=== PATIENT | male | born 1950 | race Caucasian/White ===

== ENCOUNTER → 2016-08-12 | Outpatient (CLI) | payer MEDICARE ==
[~2016-08-12] MED LIST: ALPR.25 PO; ALPR0.25 PO; AMLO5TAB2 PO; ATEN-102 PO; ATOR20TA15 PO; CIAL5TAB PO; ENBR50IN2 SQ; ENBR50IN3 SC; GENE10SO PO; IPRASOL INH; LACT10SO47 PO; LEVA500T PO; LEVEMIR SQ; LEVO750T33 PO; LOMO PO; NEBUKIT5; NORV5TAB PO; NOVORP2 SQ; OMEP20TA PO; OMEP20TA39 PO; PRED10 PO; PROBCAP30 PO; RIFA550 PO; SALM50I INH; TELM1TAB56 PO; TRAD5TAB PO; TRAM50TA PO; TRAZ150T75 PO; TRAZ50TA4 PO; ULTR50TA PO; UMEC1AER INH; VICT18IN SQ; XIFA550T4 PO; [UNRECOGNIZED DRUG - CODE] PO; [UNRECOGNIZED DRUG - CODE] TOP; [UNRECOGNIZED DRUG - CODE] TOPICAL
[2016-08-12 12:23] LABS: AUTOMATED NEUTROPHIL # 2.5 TH/MM3 (1.8-7.7); BASOPHIL % 0.8 % (0.0-2.0); EOSINOPHIL # 0.1 TH/MM3 (0-0.4); EOSINOPHIL % 2.4 % (0.0-4.0); HEMATOCRIT 34.3 % (39.0-51.0); LYMPH % 33.8 % (9.0-44.0); LYMPHOCYTE # 1.6 TH/MM3 (1.0-4.8); MEAN CELL VOLUME 94.4 FL (80.0-100.0); MEAN CORPUSCULAR HEMOGLOBIN 30.9 PG (27.0-34.0); MEAN CORPUSCULAR HGB CONC 32.7 % (32.0-36.0); MONO % 10.9 % (0.0-8.0); NEUT % 52.1 % (16.0-70.0); PLATELET COUNT 204 TH/MM3 (150-450); RED BLOOD COUNT 3.64 MIL/MM3 (4.50-5.90); RED CELL DISTRIBUTION WIDTH 15.9 % (11.6-17.2); WHITE BLOOD COUNT 4.8 TH/MM3 (4.0-11.0)
[2016-08-12 12:29] LABS: HEMO FLAGS AUTO DIFF
[2016-08-12 12:49] LABS: ALKALINE PHOSPHATASE 138 U/L (45-117); ALT (GPT) 29 U/L (12-78); ANION GAP 8 MEQ/L (5-15); AST (GOT) 38 U/L (15-37); BICARBONATE 21.7 MEQ/L (21.0-32.0); BLOOD UREA NITROGEN 14 MG/DL (7-18); CHLORIDE 107 MEQ/L (98-107); GLOMERULAR FILTRATION RATE 86 ML/MIN (>89); GLUCOSE,FASTING 184 MG/DL (74-99); POTASSIUM 3.9 MEQ/L (3.5-5.1); SODIUM (NA) 137 MEQ/L (136-145); TOTAL BILIRUBIN ADULT 0.7 MG/DL (0.2-1.0)
[2016-08-12 13:07] LABS: BANDS 8 % (0-6); EOSINOPHILS 4 % (0-4); METAMYELOCYTES 1 % (0-1); NEUTROPHIL # MANUAL DIFF 2.2 TH/MM3 (1.8-7.7); POLYS (SEG NEUTROPHILS) 37 % (16-70); WBC DIFF SAMPLE 100
[2016-08-12 13:09] LABS: OVALOCYTES 1+ (NORMAL); PLATELET ESTIMATE SMEAR NORMAL (NORMAL); PLATELET MORPHOLOGY NORMAL (NORMAL)
[2016-08-12 13:10] LABS: SCAN/DIFF FINAL DIFF MANUAL
== END ==
LOC: ELAB 11:18
PROVIDERS: ATTEND Internal Medicine
DX: N18.9 Chronic kidney disease, unspecified (principal); J18.9 Pneumonia, unspecified organism
CPT/HCPCS: 36415; 80053; 85007; 85027; 86140; 87070; 87205

== ENCOUNTER 2016-08-14 11:28 | Inpatient (IN) | payer MEDICARE ==
[~2016-08-14] VITALS: Ht 185.4 cm; Wt 101.9 kg
[~2016-08-14 11:28] MED LIST changes: -ALPR0.25 PO; -AMLO5TAB2 PO; -ATOR20TA15 PO; -ENBR50IN2 SQ; -IPRASOL INH; -LACT10SO47 PO; -LEVA500T PO; -LEVEMIR SQ; -LEVO750T33 PO; -NEBUKIT5; -OMEP20TA PO; -PRED10 PO; -PROBCAP30 PO; -TRAM50TA PO; -TRAZ150T75 PO; -UMEC1AER INH; -VICT18IN SQ; -XIFA550T4 PO; -[UNRECOGNIZED DRUG - CODE] PO; -[UNRECOGNIZED DRUG - CODE] TOPICAL
[2016-08-14 11:31] VITALS: BP 163/70; PULSE 78; RESP 24; TEMP 97.5; O2SAT 92
[2016-08-14 12:37] VITALS: RESP 20; O2SAT 100
[2016-08-14] MEDS ORDERED: ENBR50IN2 SQ (13:22)
[2016-08-14] MEDS ORDERED: ALPR0.25 PO (13:22)
[2016-08-14] MEDS ORDERED: TRAM50TA PO (13:31)
[2016-08-14] MEDS ORDERED: VICT18IN SQ (13:31)
[2016-08-14] MEDS ORDERED: [UNRECOGNIZED DRUG - CODE] TOPICAL (13:31)
[2016-08-14] MEDS ORDERED: UMEC1AER INH (13:31)
[2016-08-14] MEDS ORDERED: AMLO5TAB2 PO (13:31)
[2016-08-14] MEDS ORDERED: XIFA550T4 PO (13:31)
[2016-08-14] MEDS ORDERED: TRAZ150T75 PO (13:31)
[2016-08-14] MEDS ORDERED: TELM1TAB56 PO (13:31)
[2016-08-14] MEDS ORDERED: LACT10SO47 PO (13:31)
[2016-08-14] MEDS ORDERED: CIAL5TAB PO (13:31)
[2016-08-14] MEDS ORDERED: LEVA500T PO (13:31)
[2016-08-14] MEDS ORDERED: [UNRECOGNIZED DRUG - CODE] PO (13:31)
[2016-08-14] MEDS ORDERED: ATOR20TA15 PO (13:31)
[2016-08-14] MEDS ORDERED: OMEP20TA PO (13:31)
[2016-08-14] MEDS ORDERED: PRED10 PO (13:38)
[2016-08-14] MEDS ORDERED: PROBCAP30 PO (13:41)
--- NOTE | 2016-08-14 14:12 | PD ---
HPI Chief Complaint: Respiratory Symptoms Time Seen by Provider: 14:07 Travel History International Travel<30 days: No Contact w/Intl Traveler<30days: No Traveled to known affect area: No History of Present Illness HPI 66-year-old male that presents to the ED for evaluation of abnormal results. Per patient about 2 weeks ago he came back from a cruise in the [facility]. Per patient he started feeling somewhat weak and felt like he was having a call versus just a hangover from "too much fun on the cruise". Per patient this was not the case and she symptoms continued to get worse. Per patient she was at [place] at the time and he was admitted to the [facility] in that area. Patient apparently was in the hospital for almost a week and had a full workup by ID as well as pulmonology and found pneumonia and was put on Levaquin. They couldn't really find a source of the pneumonia and/or concerning for other organisms other than bacteria secondary to patient taking some immunosuppressants for his psoriasis. Patient was started on prednisone as well which has put his blood sugars out of control. Per patient she came back to [place] after being discharged and he was seen by his boarding house manager Dr. Ogden about 2 days ago. Patient had a CAT scan during that time and the CT showed what appears multiple old alert pneumonia and was told to come here today while patient was being seen by his procurement inspector for evaluation of his high sugars secondary to the prednisone. Patient was told that he needed to be admitted. Per patient his symptoms are cough and weakness. He does have a history of mild COPD. He has a remote history of smoking. He has a history of hypertension and diabetes. 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 [facility] Past Medical History Cancer: Yes (SKIN) Cardiovascular Problems: Yes High Cholesterol: Yes Diabetes: Yes Patient Takes Glucophage: No Diminished Hearing: Yes (left decreased) Endocrine: No Gastrointestinal Disorders: Yes (ULCER 30 YEARS AGO, CHRONIC DIARRHEA, GERD) Genitourinary: Yes (ENLARGED PROSTATE--BNO) Hepatitis: No Hiatal Hernia: No Hypertension: Yes Immune Disorder: Yes (PSORIASIS) Musculoskeletal: Yes (R HIP REPLACEMENT 2011, CERVICAL SPINE SURGERY, CERVICAL DISKECTOMY) Neurologic: Yes (POLYMYLITIS) Psychiatric: No Reproductive: No Respiratory: Yes Thyroid Disease: No Past Surgical History Abdominal Surgery: Yes (R INGUINAL HERNIA REPAIR) AICD: No Appendectomy: Yes Body Medical Devices: RIGHT HIP Genitourinary Surgery: Yes (RENAL ARTERY BYPASS USING R SAPHENOUS VEIN 1967) Joint Replacement: Yes (R HIP REPLACEMENT) Neurologic Surgery: Yes Oral Surgery: Yes (T & A) Pacemaker: No Tonsillectomy: Yes (AND ADENOIDS) Other Surgery: Yes Social History Alcohol Use: Yes (OCCASIONAL) Tobacco Use: Yes (CIGAR 3 PER WEEK) Substance Use: No Allergies-Medications (Allergen,Severity, Reaction): Coded Allergies: Sulfa (Verified Allergy, Severe, Rash, 08/14/16) Reported Meds & Prescriptions Reported Meds & Active Scripts Active Reported Florajen3 (Probiotic Product) 1 Cap Cap 1 Cap PO HS Prednisone 10 Mg Tab 30 Mg PO DAILY FOR 5 DAYS Levaquin (Levofloxacin) 500 Mg Tab 500 Mg PO DAILY Atorvastatin (Atorvastatin Calcium) 20 Mg Tab 20 Mg PO DAILY Glyset (Miglitol) 50 Mg Tab 50 Mg PO TIDAC Victoza Inj (Liraglutide Inj) 18 Mg/3 Ml Pen 1.8 Mg SQ HS Anoro Ellipta Inh (Umeclidinium/Vilanterol) 62.5-25 Mcg/Act Aero 1 Puff INH DAILY Trazodone (Trazodone HCl) 150 Mg Tab 150 Mg PO HS Tramadol (Tramadol HCl) 50 Mg Tab 50 Mg PO Q4H PRN First-Testosterone Topical (Testosterone Propionate) 2 % Cream 100 Mg TOPICAL DAILY Micardis (Telmisartan) 80 Mg Tab 80 Mg PO DAILY Cialis (Tadalafil) 5 Mg Tab 5 Mg PO DAILY Do not exceed 1 dose/day. Xifaxan (Rifaximin) 550 Mg Tab 550 Mg PO BID Omeprazole 20 Mg Tab 20 Mg PO HS Amlodipine (Amlodipine Besylate) 5 Mg Tab 5 Mg PO DAILY Enulose Liq (Lactulose (Encephalopathy) Liq) 10 Gm/15 Ml Soln 30 Ml PO HS Enbrel PF Inj (Etanercept) 50 mg/ml Syr 50 Mg SQ Q7D ON SUNDAYS Alprazolam 0.25 Mg Tab 0.25 Mg PO HS PRN Review of Systems General / Constitutional: Positive: Fever, Chills, No: Weight Gain, Weight Loss, Other Eyes: No: Diploplia, Blurred Vision, Photophobia, Drainage, Redness, Foreign Body Sensation, Pain, Tearing, Blind Spots, Visual changes, Blindness, Other HENT: No: Headaches, Vertigo, Lightheadedness, Sore Throat, Rhinitis, Rhinorrhea, Congestion, Nosebleed, Neck Stiffness, Neck Pain, Masses, Gingival Bleeding, Dental Difficulties, Ear Discharge, Earache, Other Cardiovascular: No: Chest Pain or Discomfort, Palpitations, Irregular Rhythm, Tachycardia, Diaphoresis, Syncope, Dyspnea on exertion, Varicosities, Edema, Cyanosis, Varicosities, Phlebitis, Claudication, Other Respiratory: Positive: Cough, Shortness of Breath, No: Wheezing, Sneezing, Orthopnea, Hemoptysis, Stridor, Night Sweats, Pleuritic Pain, Other Gastrointestinal: No: Nausea, Vomiting, Diarrhea, Abdominal Pain, Hematemesis, Hematochezia, Constipation, Changes in Bowel Habits, Indigestion, Dysphagia, Loss of Appetite, Other Genitourinary: No: Urgency, Frequency, Dysuria, Nocturia, Hematuria, Decreased Urinary Output, Oliguria, Hesitancy, Dribbling, Incontinence, Pelvic Pain, Flank Pain, Dyspareunia, Discharge, Dysmenorrhea, Menorrhagia, Metorrhagia, Vaginal Bleeding, Other Musculoskeletal: No: Myalgias, Arthralgias, Limited ROM, Weakness, Cramping, Edema, Pain, Atrophy, Other Skin: No Rash, No Itching, No Dryness, No Lumps, No Hives, No Change in Pigmentation, No Change in nails, No Alopecia, No Lesions, No Breast Lumps, No Breast Tenderness, No Breast Swelling, No Other Neurologic: No: Weakness, Dizziness, Syncope, Focal Abnormalities, Coordination Problem, Tremor, Ataxia, Headache, Change in Mentation, Slurred Speech, Paresthesia, Incontinence, Seizures, Sensory Disturbance, Other Psychiatric: No: Anxiety, Depression, Suicidal Ideations, Disorder of Thought, Mood Disorder, Substance Abuse, Homicidal Ideation, Other Endocrine: No: Heat Intolerance, Cold Intolerance, Polyuria, Polydipsia, Other Hematologic/Lymphatic: No: Easy Bruising, Lymph Node Enlargement, Other Physical Exam Narrative GENERAL: Well-nourished, well-developed patient in no apparent distress. SKIN: Warm and dry. HEAD: Atraumatic. Normocephalic. EYES: Pupils equal and round reactive to light and accommodation. No scleral icterus. No injection or drainage. ENT: No nasal bleeding or discharge. Mucous membranes pink and moist. TMs are clear with no sign of infection or perforation. No mastoid tenderness. Ear canals are intact bilaterally. No lymphadenopathy. Nostril mucosa is red and moist with clear mucus noted. No sinus tenderness to palpation noted. Tonsils are not enlarged or swollen. No ulvua Deviation. Tongue is midline. NECK: Trachea midline. No JVD. No meningeal signs noted CARDIOVASCULAR: Regular rate and rhythm. RESPIRATORY: No accessory muscle use. Clear to auscultation. Breath sounds equal bilaterally. GASTROINTESTINAL: Abdomen soft, non-tender, nondistended. Hepatic and splenic margins not palpable. MUSCULOSKELETAL: Extremities without clubbing, cyanosis, or edema. No obvious deformities. NEUROLOGICAL: Awake and alert. No obvious cranial nerve deficits. Motor grossly within normal limits. Five out of 5 muscle strength in the arms and legs. Normal speech. PSYCHIATRIC: Appropriate mood and affect; insight and judgment normal. Data Data Last Documented VS Vital Signs Date Time Temp Pulse Resp B/P Pulse Ox O2 Delivery O2 Flow Rate FiO2 08/14/16 12:37 77 20 100 2 08/14/16 12:37 Nasal Cannula 08/14/16 11:31 97.5 163/70 Orders Complete Blood Count With Diff (08/14/16 12:27) Basic Metabolic Panel (Bmp) (08/14/16 12:27) Blood Culture (08/14/16 12:27) Urinalysis - C+S If Indicated (08/14/16 12:27) Magnesium (Mg) (08/14/16 12:27) Iv Access Insert/Monitor (08/14/16 12:27) Ecg Monitoring (08/14/16 12:27) Oximetry (08/14/16 12:27) Consult Vascular Access Team (08/14/16 ) Vascular Poc Ultrasound (08/14/16 ) MDM Medical Decision Making Medical Screen Exam Complete: Yes Emergency Medical Condition: Yes Medical Record Reviewed: Yes Differential Diagnosis Pneumonia versus worsening pneumonia versus a typical pneumonia versus diabetes Narrative Course 66-year-old male that presents to the ED for evaluation of pneumonia. Patient was properly examined and was found to have signs and symptoms consistent what appears to be a typical pneumonia. Patient partially his immunosuppressants and he is taking antibiotics with improvement of his symptoms. Patient was found to have multiple considerations on his lung especially on the left and his been taking antibiotics with no resolution of his symptoms. Dr. Lopez was consulted who brought the patient here and after speaking with him he wants the patient to be admitted to help us, ID consult and he will evaluate here in the ED. Patient was told this and agrees with plan. Patient also tells me that his procurement inspector recommended a specific treatment for his sugars. Case was discussed with Dr. Pascal who agrees to admission. Patient was admitted to the hospital. Procedures EKG Prior to Arrival: No Diagnosis Primary Impression: Pneumonia Qualified Code: J18.9 - Pneumonia of both lower lobes due to infectious organism Admitting Information Admitting Physician Requests: Admit Ryland Ford Aug 14, 2016 14:12
[2016-08-14 14:43] LABS: AUTOMATED NEUTROPHIL # 3.7 TH/MM3 (1.8-7.7); BASOPHIL % 0.6 % (0.0-2.0); EOSINOPHIL % 0.3 % (0.0-4.0); HEMATOCRIT 34.4 % (39.0-51.0); HEMO FLAGS DIFF FINAL; LYMPH % 14.5 % (9.0-44.0); LYMPHOCYTE # 0.7 TH/MM3 (1.0-4.8); MEAN CELL VOLUME 92.5 FL (80.0-100.0); MEAN CORPUSCULAR HEMOGLOBIN 31.6 PG (27.0-34.0); MEAN CORPUSCULAR HGB CONC 34.2 % (32.0-36.0); MONO % 3.2 % (0.0-8.0); NEUT % 81.4 % (16.0-70.0); PLATELET COUNT 267 TH/MM3 (150-450); RED BLOOD COUNT 3.72 MIL/MM3 (4.50-5.90); RED CELL DISTRIBUTION WIDTH 15.9 % (11.6-17.2); WHITE BLOOD COUNT 4.6 TH/MM3 (4.0-11.0)
[2016-08-14] MEDS ORDERED: MAGNESIUM HYDROXIDE SUSP 30 ML CUP PO PRN (14:45)
[2016-08-14] MEDS ORDERED: NALOXONE HCL 0.4 MG/ML AMP IV PRN (14:45)
[2016-08-14] MEDS ORDERED: SODIUM CHLORIDE 0.9% FLUSH 5 ML FLUSH FLUSH PRN (14:45)
[2016-08-14] MEDS ORDERED: ONDANSETRON HCL 4 MG/2 ML VIAL IVP PRN (14:45)
[2016-08-14] MEDS ORDERED: ALPRAZolam 0.25 MG TAB PO PRN (14:45)
[2016-08-14] MEDS ORDERED: DEXTROSE 50% IN WATER 50 ML VIAL(D50) IV PUSH PRN (14:45)
[2016-08-14] MEDS ORDERED: RESP: ALBUTEROL 2.5 MG/3 ML NEB (PRN) NEB (14:45)
[2016-08-14] MEDS ORDERED: GLUCAGON 1 MG/ML VIAL OTHER PRN (14:45)
--- NOTE | 2016-08-14 14:50 | HHI.HP ---
[facility] Primary Care Physician nAgie Weldon M.D. Admission Diagnosis pneumonia, failed outpatient treatment. 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 He has been having shortness of breath and cough for the last 2 weeks. He was on a cruise to the [facility] a couple weeks ago. When he returned from the cruise, he went to [place]. While he was in [place], he developed fatigue and cough. He also developed hypotension and hypoxia. He was admitted to the intensive care unit. Workup by pulmonology and infectious disease showed pneumonia, but no causative bacteria. He is on day 13 of a 14 day course of Levaquin. When he returned home , he saw Dr. Ogden, pulmonology. CT of the chest was done. The patient states that he did not receive the results until this morning and was advised to come to the emergency department. His sustainable products marketing manager has requested admission to the hospital and infectious disease consultation. Review of Systems Constitutional: DENIES: Fever, Chills, Night Sweats Eyes: DENIES: Blurred vision, Vision loss Ears, nose, mouth, throat: DENIES: Hearing loss Respiratory: COMPLAINS OF: Cough, Shortness of breath, DENIES: Wheezing Cardiovascular: DENIES: Chest pain, Palpitations, Dyspnea on Exertion, Lower Extremity Edema Gastrointestinal: COMPLAINS OF: Diarrhea, DENIES: Abdominal pain, Constipation , Nausea, Vomiting Genitourinary: DENIES: Urinary frequency, Urinary incontinence, Urgency, Hematuria, Dysuria, Nocturia Musculoskeletal: DENIES: Joint pain, Muscle aches Integumentary: DENIES: Pruritus, Rash Hematologic/lymphatic: DENIES: Bruising Neurologic: DENIES: Headache Past Family Social History Past Medical History Psoriasis Diabetes mellitus Hypertension Hyperlipidemia Irritable bowel syndrome Past Surgical History Right hip replacement Spinal surgery Appendectomy Tonsillectomy/adenoidectomy Right inguinal hernia repair Renal artery bypass using right saphenous vein in 1966 Reported Medications Florajen3 (Probiotic Product) 1 Cap Cap 1 Cap PO HS Prednisone 10 Mg Tab 30 Mg PO DAILY FOR 5 DAYS Levaquin (Levofloxacin) 500 Mg Tab 500 Mg PO DAILY Atorvastatin (Atorvastatin Calcium) 20 Mg Tab 20 Mg PO DAILY Glyset (Miglitol) 50 Mg Tab 50 Mg PO TIDAC Victoza Inj (Liraglutide Inj) 18 Mg/3 Ml Pen 1.8 Mg SQ HS Anoro Ellipta Inh (Umeclidinium/Vilanterol) 62.5-25 Mcg/Act Aero 1 Puff INH DAILY Trazodone (Trazodone HCl) 150 Mg Tab 150 Mg PO HS Tramadol (Tramadol HCl) 50 Mg Tab 50 Mg PO Q4H PRN First-Testosterone Topical (Testosterone Propionate) 2 % Cream 100 Mg TOPICAL DAILY Micardis (Telmisartan) 80 Mg Tab 80 Mg PO DAILY Cialis (Tadalafil) 5 Mg Tab 5 Mg PO DAILY Do not exceed 1 dose/day. Xifaxan (Rifaximin) 550 Mg Tab 550 Mg PO BID Omeprazole 20 Mg Tab 20 Mg PO HS Amlodipine (Amlodipine Besylate) 5 Mg Tab 5 Mg PO DAILY Enulose Liq (Lactulose (Encephalopathy) Liq) 10 Gm/15 Ml Soln 30 Ml PO HS Enbrel PF Inj (Etanercept) 50 mg/ml Syr 50 Mg SQ Q7D ON SUNDAYS Alprazolam 0.25 Mg Tab 0.25 Mg PO HS PRN Allergies: Coded Allergies: Sulfa (Verified Allergy, Severe, Rash, 08/14/16) Family History Father 2 years ago at age 94. Mother is alive and well at age 96. Social History Smoked cigarettes until 30 years ago. Smokes a cigar approximately 3 times per week. Drinks approximately 1 alcoholic beverage per day. Denies IV drug use. Physical Exam Vital Signs Vital Signs Date Time Temp Pulse Resp B/P Pulse Ox O2 Delivery O2 Flow Rate FiO2 08/14/16 12:37 77 20 100 2 08/14/16 12:37 20 100 Nasal Cannula 4 08/14/16 11:31 97.5 78 24 163/70 92 Nasal Cannula Physical Exam GENERAL: Well-nourished, well-developed male in no acute distress. HEENT: Normocephalic, atraumatic. Pupils equal, round and reactive. Extraocular movements intact. No scleral icterus. No injection or drainage. Oropharynx is clear. Mucous membranes are moist. CARDIOVASCULAR: Regular rate and rhythm without murmurs, gallops, or rubs. RESPIRATORY: Bibasilar crackles. Breathing is non-labored. GASTROINTESTINAL: Abdomen soft, non-tender, nondistended. EXTREMITIES: No lower extremity edema. No calf tenderness. PSYCH: Alert and oriented x 3. Assessment and Plan Assessment and Plan 1. Pneumonia: Failed outpatient therapy. Patient actually was treated as an inpatient as well, but has not continued to improve. Consult pulmonology, infectious disease. Patient is immunosuppressed secondary to Enbrel which he takes for psoriasis. He also has had recent travel to the [place] [facility]. Continue bronchodilators, oxygen. Will need steroids, antibiotics. 2. Diabetes mellitus: Continue home insulin regimen. Diabetic diet. Monitor Accu -Cheks and cover with sliding scale insulin. 3. Peptic ulcer disease: Continue PPI. 4. Hyperlipidemia: Continue statin. 5. Hypertension: Continue amlodipine, Micardis. 6. DT prophylaxis: SCDs, DMITRIY hose. Problem Qualifiers (1) Pneumonia: Qualified Code: J18.9 - Pneumonia of both lower lobes due to infectious organism Galindo Gonzalez MD Aug 14, 2016 14:50
[2016-08-14 15:52] LABS: BLOOD, URINE NEG (NEG); GLUCOSE,URINE 1000 mg/dL (NEG); KETONE, URINE NEG (NEG); NITRITE,URINE NEG (NEG); PH, URINE 6.5 (5.0-8.5); SQUAMOUS EPITHELIAL CELL URINE <1 /hpf (0-5); URINE COLOR LIGHT-YELLOW (YELLW/STRAW)
[2016-08-14 15:55] LABS: COMMENT (UR) CULT NOT INDICATED; CULTURE IF INDICATED CULT NOT INDICATED
[2016-08-14 16:14] LABS: BICARBONATE 23.8 MEQ/L (21.0-32.0); MAGNESIUM 1.6 MG/DL (1.5-2.5)
[2016-08-14 16:17] LABS: POTASSIUM 4.9 MEQ/L (3.5-5.1)
[2016-08-14] MEDS ORDERED: GLYSET PO SCH (17:00)
[2016-08-14] MEDS ORDERED: MIGLITOL PO SCH (17:00)
[2016-08-14 17:04] VITALS: O2SAT 98
[2016-08-14] MEDS: RESP: ALBUTEROL 2.5 MG/IPRATROPIUM 0.5 MG NEB (SCH) NEB ×2 (17:04→21:05)
--- NOTE | 2016-08-14 17:09 | PD ---
Data Data Last Documented VS Vital Signs Date Time Temp Pulse Resp B/P Pulse Ox O2 Delivery O2 Flow Rate FiO2 08/14/16 12:37 77 20 100 2 08/14/16 12:37 Nasal Cannula 08/14/16 11:31 97.5 163/70 Orders Complete Blood Count With Diff (08/14/16 12:27) Basic Metabolic Panel (Bmp) (08/14/16 12:27) Blood Culture (08/14/16 12:27) Urinalysis - C+S If Indicated (08/14/16 12:27) Magnesium (Mg) (08/14/16 12:27) Iv Access Insert/Monitor (08/14/16 12:27) Ecg Monitoring (08/14/16 12:27) Oximetry (08/14/16 12:27) Consult Vascular Access Team (08/14/16 ) Vascular Poc Ultrasound (08/14/16 ) Admit Order (Ed Use Only) (08/14/16 14:22) Labs Laboratory Tests Test 08/14/16 14:15 White Blood Count 4.6 TH/MM3 Red Blood Count 3.72 MIL/MM3 Hemoglobin 11.8 GM/DL Hematocrit 34.4 % Mean Corpuscular Volume 92.5 FL Mean Corpuscular Hemoglobin 31.6 PG Mean Corpuscular Hemoglobin 34.2 % Concent Red Cell Distribution Width 15.9 % Platelet Count 267 TH/MM3 Mean Platelet Volume 9.6 FL Neutrophils (%) (Auto) 81.4 % Lymphocytes (%) (Auto) 14.5 % Monocytes (%) (Auto) 3.2 % Eosinophils (%) (Auto) 0.3 % Basophils (%) (Auto) 0.6 % Neutrophils # (Auto) 3.7 TH/MM3 Lymphocytes # (Auto) 0.7 TH/MM3 Monocytes # (Auto) 0.1 TH/MM3 Eosinophils # (Auto) 0.0 TH/MM3 Basophils # (Auto) 0.0 TH/MM3 CBC Comment DIFF FINAL Differential Comment MDM Supervised Visit with ED: Yes Narrative Course The history, exam, and medical decision-making in the associated midlevel provider note were completed with my assistance. I reviewed and agree with the findings presented. I attest that I had a [id number] encounter with the patient on the same day, and personally performed and documented my assessment and findings in the medical record. *My assessment and Findings: This is a 66-year-old male who has a history of psoriasis on immunosuppressive medications who was recently on a cruise to the [place] when he developed a pneumonia. He was hospitalized at an outside hospital and completed a course of Levaquin but his symptoms are still persisting. He consulted with Dr. faustin who sent him in for admission given his persistent symptoms. Patient's labs are reassuring. He is 92% on room air. He'll be admitted for failed outpatient therapy for pneumonia and infectious disease consultation. Diagnosis Primary Impression: Pneumonia Qualified Code: J18.9 - Pneumonia of both lower lobes due to infectious organism Any Coburn MD Aug 14, 2016 17:09
[2016-08-14] MEDS: INSULIN ASPART SUPPLEMENTAL SCALE SQ SCH ×2 (17:53→21:36)
[2016-08-14] MEDS: IBUPROFEN 400 MG TAB PO PRN (17:54)
--- NOTE | 2016-08-14 18:02 | MB ---
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 He was a former smoker. COPD had been quite stable. He traveled to the [facility] about a month ago and on return did not feel well but did not seek medical attention. 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 He became progressively more lethargic, coworkers noticed that he was confused and they insisted that he go to the hospital, this was about three weeks ago. He was admitted to a local medical center, admitted to their Intensive Care Unit and based on his history it sounds like he had extensive pneumonia and sepsis. However, he reports that all of the cultures were negative. I was able to review some of those records today and he had a CRP of 208, cryptococcal antigen was negative; I was not able to find any blood cultures in those records or sputum. Several chest x-ray reports indicate that he had bilateral pneumonia. I saw him 48 hours ago in my office, he had been at home for about three days at that point and just was not recovering. He was exhausted, had mild shortness of breath and was more hypoxic in the office. Vital signs were stable so I sent him for labs and a CT of his chest and when we got the report of the chest CT and I spoke to the radiologist it was clear that he had very extensive pneumonia throughout the right lung and in the left upper lobe. In light of that, I felt that he should be re-hospitalized so we brought him in today and he is being admitted by [facility]. We are waiting for blood work now although his white count yesterday as I recall was about 46,000. Liver functions were elevated, BUN and creatinine were elevated and he has had chronic renal failure without dialysis followed by Dr. Dima Wright. The only recent travel as I mentioned was to the [facility] and [place]. He has had no other unusual toxic exposures or exposures to ill persons. Manuel is bisexual and an HIV was performed during the [place] hospitalization which was nonreactive. He has an extensive prior history, had a renal artery saphenous vein bypass at [facility] at 17 for renal artery stenosis. He has had chronic hypertension and chronic kidney disease. He has also had psoriasis for many years and is on Enbrel. He had a right hip replacement for avascular necrosis in 2013. He has had sleep apnea for which he uses CPAP. He has had a cervical spine surgery, a right inguinal hernia repair and a discectomy. SOCIAL HISTORY , lives alone, has a son and a daughter, the daughter is a urologist, the son is an assistant prosecuting attorney here locally, lives locally. Manuel used to smoke but has not smoked for at least five years. There was a time in his life when he drank excessively although at this point he says he does not have more than five drinks a week. I should have mentioned in his past medical history he has also had some liver disease. He has been followed by a local GI physician and his CT scan yesterday did reveal a cirrhotic liver. MEDICATIONS Reviewed in the EMR. PHYSICAL EXAMINATION GENERAL: He is awake, alert, he actually looks better today than he did 48 hours ago in my office. VITAL SIGNS: He is afebrile, his blood pressure is 160/70, his pulse is 90, saturations 100% on 2 liters. HEENT: Sclerae anicteric. Mucous membranes are moist. NECK: Neck veins are flat. CHEST: Chest is actually clear. No wheezes or rales. No rhonchi. HEART: Regular rhythm. No harsh murmur. ABDOMEN: Abdomen is obese but soft. EXTREMITIES: No significant peripheral edema. No cyanosis or clubbing. DISCUSSION Manuel has extensive infiltrates on a CT scan done as an outpatient this week. Whether this is resolving pneumonia or continued active infection is not clear. Labs are pending. Sputum culture did reveal normal aguilar this week. In light of the extensive infiltrates on CT, I suggest that we observe him for at least 24-48 hours, ask Infectious Disease to see him and review the presentation, await some additional lab work, and I did notice that his blood sugar was 400 so we need some control of his diabetes as well. Further diagnostic and/or therapeutic intervention will depend on his response and ongoing clinical course. RMD FERNANDEZ Christina/SUSI /5:19 PM /5:38 PM
--- NOTE | 2016-08-14 18:17 | RADRPT ---
EXAM DATE/TIME: 08/14/2016 17:55 [facility] COMPARISON: No previous studies available for comparison. INDICATIONS : Patient states he has pneumonia. MEDICAL HISTORY : None. SURGICAL HISTORY : None. ENCOUNTER: Initial ACUITY: 2 weeks PAIN SCORE: 0/10 LOCATION: chest FINDINGS: There is slight interstitial type of infiltrate in the right upper lobe. Focal consolidation is not i dentified. Heart and mediastinum are unremarkable for technique. CONCLUSION: Mild interstitial process in the right upper lung of indeterminate age most likely inflammatory in th e appropriate clinical setting. Kayode James MD on August 14, 2016 at 18:14 Board Certified Radiologist. This report was verified electronically.
[2016-08-14 18:56] VITALS: BP 139/62; PULSE 69; RESP 20; O2SAT 97
[2016-08-14] MEDS: LACTULOSE SYRUP 20 GM/30 ML CUP PO SCH (21:00)
[2016-08-14] MEDS ORDERED: VICTOZA SQ SCH (21:00)
[2016-08-14] MEDS: SODIUM CHLORIDE 0.9% FLUSH 5 ML FLUSH FLUSH SCH (21:00)
[2016-08-14] MEDS ORDERED: PROBIOTIC PRODUCT PO SCH (21:00)
[2016-08-14] MEDS ORDERED: INSULIN HUMAN REGULAR 1,000 UNITS/10 ML VIAL IVP ONE (21:00)
[2016-08-14] MEDS ORDERED: NON-FORMULARY DRUG (Liraglutide Inj (Victoza Inj) 1.8 MG) SQ SCH (21:00)
[2016-08-14 21:06] VITALS: O2SAT 97
[2016-08-14 21:21] VITALS: BP 132/51; PULSE 64; RESP 20; TEMP 98.6; O2SAT 99
[2016-08-14] MEDS: PANTOPRAZOLE SOD 20 MG DELAYED RELEASE TAB PO SCH (21:35)
[2016-08-14] MEDS: RIFAXIMIN 550 MG TAB PO SCH (21:35)
[2016-08-14] MEDS: traZODone HCL 50 MG TAB PO SCH (21:35)
--- NOTE | 2016-08-14 23:14 | PD.ID.CON ---
History of Present Illness Service ID Consult Requested By Dr Lai Ogden Reason for Consult PNA Primary Care Physician Angie Weldon M.D. 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 with 3 weeks of SOB , hypoxia, TELLO and pulmonary infiltrates x 3 weeks Rerports minimal dry cough Actually has pre-existing cough x mos thought to be post nasal drip (seen by ENT ) Reports negative CXR about 6 mos ago and negative [address] chest 1 yr ago Pt had exensive w/u 2 weeks ago [facility] [employer] [facility] [place] where he presented to local hospital with SOB W/u included negative flu est, negative blood clx , non reactive HIV serology, negative cryptococcaqL Ag and some fungal studies He also reports sputum clx done at Dr Lai Ogden office with normal resp aguilar He is afebrile He was treated with zosyn, levaquin in [place] and released on Levaquine He states improvement in SOB and though remianing on 4 L of NC O2 is able to walk much larger distance than a week ago He apparently had CT done as o/p which showed extensive infiltraes Review of Systems Except as stated in HPI: all other systems reviewed are Neg Past Family Social History Allergies: Coded Allergies: Sulfa (Verified Allergy, Severe, Rash, 08/14/16) Past Medical History Psoriasis Diabetes mellitus Hypertension Hyperlipidemia Irritable bowel syndrome Past Surgical History Right hip replacement Spinal surgery Appendectomy Tonsillectomy/adenoidectomy Right inguinal hernia repair 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 Social History + Tobacco: sigars occasionally; remote tobacco + ETOH, daily 1 drink No Illicit Drugs. Physical Exam Vital Signs Vital Signs Date Time Temp Pulse Resp B/P Pulse Ox O2 Delivery O2 Flow Rate FiO2 08/14/16 21:21 98.6 64 20 132/51 99 08/14/16 21:06 97 Nasal Cannula 4.00 08/14/16 18:56 69 20 139/62 97 Room Air 4 08/14/16 18:54 16 08/14/16 17:04 98 Nasal Cannula 4.00 08/14/16 12:37 77 20 100 2 08/14/16 12:37 20 100 Nasal Cannula 4 08/14/16 11:31 97.5 78 24 163/70 92 Nasal Cannula Physical Exam CONSTITUTIONAL/GENERAL: This is an adequately nourished patient, in no apparent distress. TUBES/LINES/DRAINS: SKIN: No jaundice, rashes, or lesions. Skin temperature appropriate. Not diaphoretic. HEAD: Atraumatic. Normocephalic. EYES: Pupils equal and round and reactive. Extraocular motions intact. No scleral icterus. No injection or drainage. Fundi not examined. ENT: Hearing grossly normal. Nose without bleeding or purulent drainage. Throat without visible erythema, exudates, masses, or lesions. NECK: Trachea midline. Supple, nontender. No palpable thyroid enlargement or nodularity. CARDIOVASCULAR: Regular rate and rhythm 1-2/6 blowing murmur LUSB, gallops, or rubs. No JVD. Peripheral pulses symmetric. RESPIRATORY/CHEST: Symmetric, unlabored respirations. Diffuse bibasilar crackles to auscultation posteriorlky . Breath sounds equal bilaterally. No wheezes, or rhonchi. GASTROINTESTINAL: Abdomen soft, non-tender, nondistended. No hepato-splenomegaly , or palpable masses. No guarding. Bowel sounds present. GENITOURINARY: Without palpable bladder distension. Pozo catheter in place. MUSCULOSKELETAL: Extremities without clubbing, cyanosis, or edema. No joint tenderness or effusion noted. No calf tenderness. No mottling or clubbing. LYMPHATICS: No palpable cervical or supraclavicular adenopathy. NEUROLOGICAL: Awake and alert. Motor and sensory grossly within normal limits. Follows commands. Cognitively sharp. Moves all extremities. PSYCHIATRIC: No obvious anxiety/depression. no apparent hallucinations or other psychotic thought process. Laboratory Laboratory Tests Test 08/14/16 08/14/16 14:15 15:20 White Blood Count 4.6 Red Blood Count 3.72 Hemoglobin 11.8 Hematocrit 34.4 Mean Corpuscular Volume 92.5 Mean Corpuscular Hemoglobin 31.6 Mean Corpuscular Hemoglobin 34.2 Concent Red Cell Distribution Width 15.9 Platelet Count 267 Mean Platelet Volume 9.6 Neutrophils (%) (Auto) 81.4 Lymphocytes (%) (Auto) 14.5 Monocytes (%) (Auto) 3.2 Eosinophils (%) (Auto) 0.3 Basophils (%) (Auto) 0.6 Neutrophils # (Auto) 3.7 Lymphocytes # (Auto) 0.7 Monocytes # (Auto) 0.1 Eosinophils # (Auto) 0.0 Basophils # (Auto) 0.0 CBC Comment DIFF FINAL Differential Comment Urine Color LIGHT-YELLOW Urine Turbidity CLEAR Urine pH 6.5 Urine Specific Warren 1.008 Urine Protein NEG Urine Glucose (UA) 1000 Urine Ketones NEG Urine Occult Blood NEG Urine Nitrite NEG Urine Bilirubin NEG Urine Urobilinogen LESS THAN 2.0 Urine Leukocyte Esterase NEG Urine RBC LESS THAN 1 Urine WBC 1 Urine Squamous Epithelial <1 Cells Microscopic Urinalysis Comment CULT NOT INDICATED Sodium Level 135 Potassium Level 4.9 Chloride Level 102 Carbon Dioxide Level 23.8 Anion Gap 9 Blood Urea Nitrogen 19 Creatinine 1.09 Estimat Glomerular Filtration 67 Rate Random Glucose 414 Calcium Level 9.2 Magnesium Level 1.6 C-Reactive Protein 0.66 Date/Time Procedure Status Source Growth 08/14/16 20:54 Gram Stain Received Sputum Expectorated Sputum Pending 08/14/16 20:54 Sputum Culture Received Sputum Expectorated Sputum Pending 08/14/16 19:10 Legionella Antigen Received Urine Random Urine Pending 08/14/16 19:10 Streptococcus pneumoniae Antigen (M Received Urine Random Urine Pending 08/14/16 19:10 Influenza Types A,B Antigen (NADEEN) - Final Complete Nasal Washing NEGATIVE FOR FLU A AND B ANTIGEN.... 08/14/16 14:15 Aerobic Blood Culture Received Blood Peripheral Pending 08/14/16 14:15 Anaerobic Blood Culture Received Blood Peripheral Pending Result Diagram: 08/14/16 1415 08/14/16 1520 Imaging Last Impressions Chest X-Ray 08/14/16 0000 Signed Impressions: Service Date/Time: August 17:55 - CONCLUSION: Mild interstitial process in the right upper lung of indeterminate age most likely inflammatory in the appropriate clinical setting. Kayode James MD Assessment and Plan Assessment and Plan Atypical PNA, community a cquired Nondiagnostic non nvasive w/u, clinical improvement (modest and slow) with empiric tx Persistent extensive infiltrates - Azithromycin mycoplasma serologies sputum clx if feasible consider bronch if no further clinical improvement and still no dx further rec's to follow Discussed Condition With Elaine Brown MD Aug 14, 2016 23:14
[2016-08-15] VITALS (8 sets, daily range): BP systolic 107–160; BP diastolic 44–65; PULSE 68–73; RESP 16–18; TEMP 96.4–97.7; O2SAT 91–99
[2016-08-15] MEDS: INSULIN ASPART SUPPLEMENTAL SCALE SQ SCH ×4 (07:00→20:09)
[2016-08-15] MEDS: RESP: ALBUTEROL 2.5 MG/IPRATROPIUM 0.5 MG NEB (SCH) NEB ×4 (07:45→19:46)
[2016-08-15] MEDS: UMECLIDINIUM 62.5 MCG/VILANTEROL 25 MCG INHALER INH SCH (09:18)
[2016-08-15] MEDS: RIFAXIMIN 550 MG TAB PO SCH ×2 (09:18→20:17)
[2016-08-15] MEDS: AZITHROMYCIN 250 MG TAB PO SCH (09:20)
[2016-08-15] MEDS: ATORVASTATIN 20 MG TAB PO SCH (09:22)
[2016-08-15] MEDS: SODIUM CHLORIDE 0.9% FLUSH 5 ML FLUSH FLUSH SCH ×2 (09:38→20:15)
--- NOTE | 2016-08-15 11:50 | HHI.PR ---
Subjective Remarks Follow-up pneumonia, diabetes. Patient states that he feels a little better today. Still with dyspnea, weakness. Objective Vitals Vital Signs Date Time Temp Pulse Resp B/P Pulse Ox O2 Delivery O2 Flow Rate FiO2 08/15/16 08:00 97.6 68 16 107/52 95 08/15/16 07:45 91 Nasal Cannula 4.00 08/15/16 04:46 97.4 69 16 160/65 94 08/15/16 00:00 97.7 68 18 144/60 98 08/14/16 21:21 98.6 64 20 132/51 99 08/14/16 21:06 97 Nasal Cannula 4.00 08/14/16 18:56 69 20 139/62 97 Room Air 4 08/14/16 18:54 16 08/14/16 17:04 98 Nasal Cannula 4.00 08/14/16 12:37 77 20 100 2 08/14/16 12:37 20 100 Nasal Cannula 4 I/O 08/14/16 08/14/16 08/14/16 08/15/16 08/15/16 08/15/16 07:00 15:00 23:00 07:00 15:00 23:00 Intake Total 150 ml 200 ml Output Total 500 ml Balance 150 ml -300 ml Intake Oral 150 ml 200 ml Output Urine Total 500 ml # Voids 1 # Bowel Movements 0 0 Result Diagram: 08/14/16 1415 08/14/16 1520 Imaging Last Impressions Chest X-Ray 08/14/16 0000 Signed Impressions: Service Date/Time: August 17:55 - CONCLUSION: Mild interstitial process in the right upper lung of indeterminate age most likely inflammatory in the appropriate clinical setting. Kayode James MD Objective Remarks General: No acute distress. Heart: Regular rate and rhythm. No murmur. Lungs: Mild basilar crackles, less than yesterday. Breathing is nonlabored. Abdomen: Soft, nontender, nondistended. Extremities: No lower extremity edema. Psych: Alert and oriented. Procedures None Urinary Catheter: No Vascular Central Line Catheter: No A/P Problem List: (1) Pneumonia ICD Code: J18.9 Status: Acute (2) Type 2 diabetes mellitus ICD Code: E11.9 Status: Acute (3) Chronic kidney disease ICD Code: N18.9 Status: Acute (4) Hypertension ICD Code: I10 Status: Acute (5) Hyperlipidemia ICD Code: E78.5 Status: Acute Assessment and Plan 1. Pneumonia: Failed outpatient therapy. Patient actually was treated as an inpatient as well, but pneumonia has not resolved. Appreciate pulmonology recommendations. Patient is immunosuppressed secondary to Enbrel which he takes for psoriasis. He also has had recent travel to the [facility]. Continue bronchodilators, oxygen. Continue antibiotics per infectious disease recommendations. HIV was nonreactive during hospitalization in [place]. 2. Diabetes mellitus: Continue home insulin regimen. Diabetic diet. Monitor Accu -Cheks and cover with sliding scale insulin. 3. Peptic ulcer disease: Continue PPI. 4. Hyperlipidemia: Continue statin. 5. Hypertension: Continue amlodipine, Micardis. 6. DT prophylaxis: SCDs, DMITRIY prater. Problem Qualifiers (1) Pneumonia: Qualified Code: J18.9 - Pneumonia of both lower lobes due to infectious organism Galindo Gonzalez MD Aug 15, 2016 11:50
[2016-08-15] MEDS: amLODIPine BESYLATE 5 MG TAB PO SCH (13:55)
[2016-08-15] MEDS: LOSARTAN 50 MG TAB PO SCH (13:55)
[2016-08-15] MEDS: IBUPROFEN 400 MG TAB PO PRN (14:54)
[2016-08-15] MEDS: cefTRIAXone INJ 2,000 MG in SODIUM CHLORIDE 0.9% INJ 100 ML IV SCH (14:54)
[2016-08-15] MEDS: LACTULOSE SYRUP 20 GM/30 ML CUP PO SCH (20:16)
[2016-08-15] MEDS: traZODone HCL 50 MG TAB PO SCH (20:17)
[2016-08-15] MEDS: PANTOPRAZOLE SOD 20 MG DELAYED RELEASE TAB PO SCH (20:17)
[2016-08-15] MEDS ORDERED: VICTOZA 1.8 MG SQ SCH (21:00)
[2016-08-15] MEDS ORDERED: INSULIN DETEMIR 100 UNITS/ML VIAL SQ SCH (21:00)
[2016-08-15] MEDS ORDERED: [UNRECOGNIZED DRUG - OTHER] SQ SCH (21:00)
[2016-08-15 21:27] LABS: AUTOMATED NEUTROPHIL # 2.9 TH/MM3 (1.8-7.7); BASOPHIL % 0.7 % (0.0-2.0); EOSINOPHIL # 0.1 TH/MM3 (0-0.4); EOSINOPHIL % 1.2 % (0.0-4.0); HEMATOCRIT 35.1 % (39.0-51.0); HEMO FLAGS DIFF FINAL; LYMPH % 37.2 % (9.0-44.0); LYMPHOCYTE # 2.3 TH/MM3 (1.0-4.8); MEAN CELL VOLUME 94.8 FL (80.0-100.0); MEAN CORPUSCULAR HEMOGLOBIN 31.5 PG (27.0-34.0); MEAN CORPUSCULAR HGB CONC 33.3 % (32.0-36.0); MONO % 12.2 % (0.0-8.0); NEUT % 48.7 % (16.0-70.0); PLATELET COUNT 205 TH/MM3 (150-450); RED CELL DISTRIBUTION WIDTH 15.4 % (11.6-17.2)
[2016-08-15 21:54] LABS: ALKALINE PHOSPHATASE 141 U/L (45-117); ALT (GPT) 31 U/L (12-78); ANION GAP 12 MEQ/L (5-15); AST (GOT) 34 U/L (15-37); BICARBONATE 21.6 MEQ/L (21.0-32.0); BLOOD UREA NITROGEN 21 MG/DL (7-18); CHLORIDE 99 MEQ/L (98-107); GLOMERULAR FILTRATION RATE 60 ML/MIN (>89); POTASSIUM 3.4 MEQ/L (3.5-5.1); SODIUM (NA) 133 MEQ/L (136-145); TOTAL BILIRUBIN ADULT 0.5 MG/DL (0.2-1.0)
--- NOTE | 2016-08-15 22:25 | HHI.IDPN ---
Subjective Subjective Remarks delayed entry - pt was seen around 1800 today Doing better feels stronger less OSB was able to take a shower afebrile + penumococcal AG Antibiotics azithro po Allergies: Coded Allergies: Sulfa (Verified Allergy, Severe, Rash, 08/14/16) Objective . Vital Signs Date Time Temp Pulse Resp B/P Pulse Ox O2 Delivery O2 Flow Rate FiO2 08/15/16 20:00 97.0 68 18 147/64 99 08/15/16 17:39 16 08/15/16 16:00 96.4 72 16 123/52 98 08/15/16 12:29 97.7 73 16 107/44 95 08/15/16 08:00 97.6 68 16 107/52 95 08/15/16 07:45 91 Nasal Cannula 4.00 08/15/16 04:46 97.4 69 16 160/65 94 08/15/16 00:00 97.7 68 18 144/60 98 08/14/16 08/14/16 08/15/16 15:00 23:00 07:00 Intake Total 150 ml 200 ml Output Total 500 ml Balance 150 ml -300 ml Intake Oral 150 ml 200 ml Output Urine Total 500 ml # Voids 1 # Bowel Movements 0 0 . Laboratory Tests Test 08/14/16 08/15/16 14:15 20:25 White Blood Count 4.6 TH/MM3 6.0 TH/MM3 Red Blood Count 3.72 MIL/MM3 3.70 MIL/MM3 Hemoglobin 11.8 GM/DL 11.7 GM/DL Hematocrit 34.4 % 35.1 % Mean Corpuscular Volume 92.5 FL 94.8 FL Mean Corpuscular Hemoglobin 31.6 PG 31.5 PG Mean Corpuscular Hemoglobin 34.2 % 33.3 % Concent Red Cell Distribution Width 15.9 % 15.4 % Platelet Count 267 TH/MM3 205 TH/MM3 Mean Platelet Volume 9.6 FL 8.8 FL Neutrophils (%) (Auto) 81.4 % 48.7 % Lymphocytes (%) (Auto) 14.5 % 37.2 % Monocytes (%) (Auto) 3.2 % 12.2 % Eosinophils (%) (Auto) 0.3 % 1.2 % Basophils (%) (Auto) 0.6 % 0.7 % Neutrophils # (Auto) 3.7 TH/MM3 2.9 TH/MM3 Lymphocytes # (Auto) 0.7 TH/MM3 2.3 TH/MM3 Monocytes # (Auto) 0.1 TH/MM3 0.7 TH/MM3 Eosinophils # (Auto) 0.0 TH/MM3 0.1 TH/MM3 Basophils # (Auto) 0.0 TH/MM3 0.0 TH/MM3 CBC Comment DIFF FINAL DIFF FINAL Differential Comment Laboratory Tests Test 08/14/16 08/15/16 15:20 20:25 Sodium Level 135 MEQ/L 133 MEQ/L Potassium Level 4.9 MEQ/L 3.4 MEQ/L Chloride Level 102 MEQ/L 99 MEQ/L Carbon Dioxide Level 23.8 MEQ/L 21.6 MEQ/L Anion Gap 9 MEQ/L 12 MEQ/L Blood Urea Nitrogen 19 MG/DL 21 MG/DL Creatinine 1.09 MG/DL 1.20 MG/DL Estimat Glomerular Filtration 67 ML/MIN 60 ML/MIN Rate Random Glucose 414 MG/DL 445 MG/DL Calcium Level 9.2 MG/DL 8.8 MG/DL Magnesium Level 1.6 MG/DL C-Reactive Protein 0.66 MG/DL Total Bilirubin 0.5 MG/DL Aspartate Amino Transf 34 U/L (AST/SGOT) Alanine Aminotransferase 31 U/L (ALT/SGPT) Alkaline Phosphatase 141 U/L Total Protein 7.3 GM/DL Albumin 3.1 GM/DL Microbiology Date/Time Procedure Status Source Growth 08/14/16 14:15 Aerobic Blood Culture - Preliminary Resulted Blood Peripheral NO GROWTH IN 1 DAY 08/14/16 14:15 Anaerobic Blood Culture - Preliminary Resulted Blood Peripheral NO GROWTH IN 1 DAY 08/14/16 14:15 Aerobic Blood Culture - Preliminary Resulted Blood Peripheral NO GROWTH IN 1 DAY 08/14/16 14:15 Anaerobic Blood Culture - Preliminary Resulted Blood Peripheral NO GROWTH IN 1 DAY 08/14/16 19:10 Influenza Types A,B Antigen (NADEEN) - Final Complete Nasal Washing NEGATIVE FOR FLU A AND B ANTIGEN.... 08/14/16 19:10 Legionella Antigen - Final Complete Urine Random Urine PRESUMPTIVE NEGATIVE FOR LEGIONELLA P... 08/14/16 19:10 Streptococcus pneumoniae Antigen (M - Final Complete Pos For Pneumococcal Antigen 08/14/16 20:54 Cancelled Sputum Expectorated Sputum 08/15/16 09:32 Gram Stain - Final Resulted Sputum Expectorated Sputum 08/15/16 09:32 Sputum Culture Resulted Sputum Expectorated Sputum Pending Imaging Last Impressions Chest X-Ray 08/14/16 0000 Signed Impressions: Service Date/Time: August 17:55 - CONCLUSION: Mild interstitial process in the right upper lung of indeterminate age most likely inflammatory in the appropriate clinical setting. Kayode James MD Physical Exam CONSTITUTIONAL/GENERAL: This is an adequately nourished patient, in no apparent distress. TUBES/LINES/DRAINS: SKIN: No jaundice, rashes, or lesions. Skin temperature appropriate. Not diaphoretic. CARDIOVASCULAR: Regular rate and rhythm 1-2/6 blowing murmur LUSB, gallops, or rubs. No JVD. Peripheral pulses symmetric. RESPIRATORY/CHEST: Symmetric, unlabored respirations. Clear anteriorly and posteriorly GASTROINTESTINAL: Abdomen soft, non-tender, nondistended. No hepato-splenomegaly , or palpable masses. No guarding. Bowel sounds present. GENITOURINARY: Without palpable bladder distension. MUSCULOSKELETAL: Extremities without clubbing, cyanosis, or edema. No joint tenderness or effusion noted. No calf tenderness. No mottling or clubbing. LYMPHATICS: No palpable cervical or supraclavicular adenopathy. NEUROLOGICAL: Awake and alert. Motor and sensory grossly within normal limits. Follows commands. Cognitively sharp. Moves all extremities. Assessment & Plan Remarks Atypical PNA, community a cquired - suspected pneumococcal PNA - improving clinically Some medication induced immunosuppression (Enbrel for Psoriasis) Nondiagnostic non nvasive w/u, clinical improvement (modest and slow) with empiric tx Persistent extensive infiltrates: improving - cont Azithromycin - start CFTX - if cont to improve will dc on another course of Levauine 750 x 7-10 days Hold Enbrel untill complete resolution of PNA mycoplasma serologies sputum clx if feasible consider bronch if no further clinical improvement ore relapse dw pt Elaine Cox MD Aug 15, 2016 22:25
[2016-08-16] VITALS: BP 115/61; PULSE 70; RESP 16; TEMP 97.7; O2SAT 95
[2016-08-16] MEDS: IBUPROFEN 400 MG TAB PO PRN (03:12)
[2016-08-16 04:00] VITALS: BP 136/56; PULSE 65; RESP 15; TEMP 97.2; O2SAT 96
[2016-08-16] MEDS: INSULIN ASPART SUPPLEMENTAL SCALE SQ SCH ×2 (06:17→12:44)
[2016-08-16 07:30] VITALS: BP 130/57; PULSE 79; RESP 16; TEMP 98.3; O2SAT 95
[2016-08-16] MEDS: SODIUM CHLORIDE 0.9% FLUSH 5 ML FLUSH FLUSH SCH (09:00)
[2016-08-16] MEDS: RESP: ALBUTEROL 2.5 MG/IPRATROPIUM 0.5 MG NEB (SCH) NEB ×2 (09:26→12:10)
[2016-08-16 09:28] VITALS: O2SAT 98
--- NOTE | 2016-08-16 09:30 | HHI.PR ---
Subjective Remarks Follow up pneumonia, diabetes. Patient states that he is feeling better today. Wants to go home. Objective Vitals Vital Signs Date Time Temp Pulse Resp B/P Pulse Ox O2 Delivery O2 Flow Rate FiO2 08/16/16 07:30 98.3 79 16 130/57 95 08/16/16 04:00 97.2 65 15 136/56 96 08/16/16 00:00 97.7 70 16 115/61 95 08/15/16 20:00 97.0 68 18 147/64 99 08/15/16 19:46 98 Nasal Cannula 4.00 08/15/16 17:39 16 08/15/16 16:00 96.4 72 16 123/52 98 08/15/16 12:29 97.7 73 16 107/44 95 I/O 08/15/16 08/15/16 08/15/16 08/16/16 08/16/16 08/16/16 07:00 15:00 23:00 07:00 15:00 23:00 Intake Total 200 ml 720 ml 480 ml 480 ml Output Total 500 ml Balance -300 ml 720 ml 480 ml 480 ml Intake Oral 200 ml 720 ml 480 ml 480 ml Output Urine Total 500 ml # Voids 3 3 # Bowel Movements 0 1 Result Diagram: 08/15/16202408/15/162024 Imaging Last Impressions Chest X-Ray 08/14/16 0000 Signed Impressions: Service Date/Time: August 17:55 - CONCLUSION: Mild interstitial process in the right upper lung of indeterminate age most likely inflammatory in the appropriate clinical setting. Kayode James MD Objective Remarks General: No acute distress. Sitting up in a chair. Heart: Regular rate and rhythm. No murmur. Lungs: Mild crackles in right base, otherwise clear. Breathing is nonlabored. Abdomen: Soft, nontender, nondistended. Extremities: No lower extremity edema. Psych: Alert and oriented. Procedures None Urinary Catheter: No Vascular Central Line Catheter: No A/P Problem List: (1) Pneumonia ICD Code: J18.9 Status: Acute (2) Type 2 diabetes mellitus ICD Code: E11.9 Status: Chronic (3) Chronic kidney disease ICD Code: N18.9 Status: Chronic (4) Hypertension ICD Code: I10 Status: Chronic (5) Hyperlipidemia ICD Code: E78.5 Status: Chronic Assessment and Plan 1. Pneumonia: Failed outpatient therapy. Patient was treated as an inpatient as well including 4 days in ICU, but pneumonia has not resolved. Appreciate pulmonology recommendations. Patient is immunosuppressed secondary to Enbrel which he takes for psoriasis. He also has had recent travel to the [facility]. Continue bronchodilators, oxygen. Continue antibiotics per infectious disease recommendations. HIV was negative during hospitalization in [place]. Pneumococcal antigen positive. 2. Diabetes mellitus: Continue home insulin regimen. Diabetic diet. Monitor Accu -Cheks and cover with sliding scale insulin. 3. Peptic ulcer disease: Continue PPI. 4. Hyperlipidemia: Continue statin. 5. Hypertension: Continue amlodipine, Micardis. 6. DT prophylaxis: SCDs, DMITRIY prater. Discharge Planning Possible discharge home later today if cleared by pulmonology and infectious disease. Problem Qualifiers (1) Pneumonia: Qualified Code: J13 - Pneumonia of both lower lobes due to Streptococcus pneumoniae (2) Chronic kidney disease: Qualified Code: N18.3 - Chronic kidney disease, stage 3 (moderate) Galindo Gonzalez MD Aug 16, 2016 09:30
[2016-08-16] MEDS: AZITHROMYCIN 250 MG TAB PO SCH (10:47)
[2016-08-16] MEDS: RIFAXIMIN 550 MG TAB PO SCH (10:48)
[2016-08-16] MEDS: ATORVASTATIN 20 MG TAB PO SCH (10:48)
[2016-08-16] MEDS: LOSARTAN 50 MG TAB PO SCH (10:49)
[2016-08-16] MEDS: amLODIPine BESYLATE 5 MG TAB PO SCH (10:49)
[2016-08-16] MEDS: UMECLIDINIUM 62.5 MCG/VILANTEROL 25 MCG INHALER INH SCH (10:51)
[2016-08-16 12:15] VITALS: BP 142/62; PULSE 94; RESP 22; TEMP 99; O2SAT 97
[2016-08-16] MEDS ORDERED: LEVO750T33 PO (12:36)
[2016-08-16] MEDS ORDERED: LEVEMIR SQ (12:36)
--- NOTE | 2016-08-16 12:36 | HHI.DCPOC ---
Discharge Care Plan Diagnosis: (1) Chronic kidney disease (2) Hypertension (3) Hyperlipidemia (4) Type 2 diabetes mellitus (5) Pneumonia Goals to Promote Your Health * To prevent worsening of your condition and complications * To maintain your health at the optimal level Directions to Meet Your Goals Take your medications as prescribed Follow your dietary instruction Follow activity as directed Keep your appointments as scheduled Take your immunizations and boosters as scheduled If your symptoms worsen call your PCP, if no PCP go to Urgent Care Center or Emergency Room Smoking is Dangerous to Your Health. Avoid second hand smoke Call the 24-hour hour crisis hotline for domestic abuse at Galindo Gonzalez MD Aug 16, 2016 12:36
[2016-08-16] MEDS ORDERED: ALBUTEROL SULFATE 90 MCG/ACT HFA 8 GM INHALER INH PRN (12:45)
[2016-08-16] MEDS: cefTRIAXone INJ 2,000 MG in SODIUM CHLORIDE 0.9% INJ 100 ML IV SCH (13:32)
[2016-08-16] MEDS ORDERED: NEBUKIT5 (14:50)
[2016-08-16] MEDS ORDERED: IPRASOL INH (14:50)
--- NOTE | 2016-08-20 12:43 | MD ---
cc: Jennifer MARROQUIN M.D. 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 He looked weak and debilitated. We did a CT scan and some labs and he still had a multi-lobar infiltrate very extensive. In light of his debility, the extent of infiltrate, and the immunosuppression from and Enbrel and liver disease, he was admitted to the hospital for further evaluation. He was seen in consultation by infectious disease. Cultures of his blood were negative. Influenza A and B were negative. Mycoplasma titers are pending and a sputum is also pending. His pneumococcal antigen in his urine was positive, however. He has been very stable over the last 48 hours. His saturations are fine on 3-4 liters of oxygen and infectious disease concurs that we can follow him as an outpatient. They recommend Levaquin 750 for an additional week. I have asked Manuel to take it easy at home though, not to be going out and about, to rest, take plenty of fluids and continue his bronchodilators and oxygen continuously. I will see him back in the office next week and he knows that if he gets worse at home on this therapy, he will have to come back to the hospital. A few additional labs were pertinent his white count is 6000, platelet count was normal. His CRP was low at 0.66. It was dramatically elevated during his admission two weeks ago in [place]. He also had an HIV during that admission which was negative. MD FERNANDEZ Guevara/KARMA /12:36 PM /12:36 PM
== END 2016-08-16 15:14 | disposition home or self-care (01) | DRG 194 ==
LOC: NEPE 11:28 → NEDA 14:24 → NEDH 19:24 → HOCA 20:35
PROVIDERS: ADMIT Family Medicine; ATTEND Family Medicine
DX: J18.9 Pneumonia, unspecified organism (principal); J44.0 Chronic obstructive pulmonary disease with (acute) lower respiratory infection; E11.22 Type 2 diabetes mellitus with diabetic chronic kidney disease; K74.60 Unspecified cirrhosis of liver; Z99.81 Dependence on supplemental oxygen; I12.9 Hypertensive chronic kidney disease with stage 1 through stage 4 chronic kidney disease, or unspecified chronic kidney disease; N18.9 Chronic kidney disease, unspecified; L40.9 Psoriasis, unspecified; R73.9 Hyperglycemia, unspecified; T38.0X5A Adverse effect of glucocorticoids and synthetic analogues, initial encounter; Y92.009 Unspecified place in unspecified non-institutional (private) residence as the place of occurrence of the external cause; T45.1X5A Adverse effect of antineoplastic and immunosuppressive drugs, initial encounter; Z79.4 Long term (current) use of insulin; Z96.641 Presence of right artificial hip joint; H91.92 Unspecified hearing loss, left ear; E78.00 Pure hypercholesterolemia, unspecified; K21.9 Gastro-esophageal reflux disease without esophagitis; N40.0 Benign prostatic hyperplasia without lower urinary tract symptoms; F17.290 Nicotine dependence, other tobacco product, uncomplicated; Z88.2 Allergy status to sulfonamides; E78.5 Hyperlipidemia, unspecified; K27.9 Peptic ulcer, site unspecified, unspecified as acute or chronic, without hemorrhage or perforation; R09.02 Hypoxemia; G47.30 Sleep apnea, unspecified
CPT/HCPCS: 36415; 71010; 76937; 80048; 80053; 81001; 82948; 83735; 85007; 85025; 85027; 86140; 86738; 87040; 87070; 87205; 87449; 87804; 94640; 94664; J0696; J1815

== ENCOUNTER → 2016-11-20 | Outpatient (CLI) | payer MEDICARE ==
[~2016-11-20] MED LIST changes: -ALPR.25 PO; +ALPR0.25 PO; +AMLO5TAB2 PO; -ATEN-102 PO; +ATOR20TA15 PO; -ENBR50IN3 SC; -GENE10SO PO; +IPRASOL INH; +LACT10SO47 PO; +LEVEMIR SQ; +LEVO750T33 PO; -LOMO PO; +NEBUKIT5; -NORV5TAB PO; -NOVORP2 SQ; +OMEP20TA PO; -OMEP20TA39 PO; +PROBCAP30 PO; -RIFA550 PO; -SALM50I INH; -TRAD5TAB PO; +TRAM50TA PO; +TRAZ150T75 PO; -TRAZ50TA4 PO; -ULTR50TA PO; +UMEC1AER INH; +VICT18IN SQ; +XIFA550T4 PO; +[UNRECOGNIZED DRUG - CODE] PO; -[UNRECOGNIZED DRUG - CODE] TOP; +[UNRECOGNIZED DRUG - CODE] TOPICAL
== END ==
LOC: CLAB 15:41
PROVIDERS: ATTEND Internal Medicine
DX: R06.02 Shortness of breath (principal); N18.9 Chronic kidney disease, unspecified
CPT/HCPCS: 36415; 82565; 84520

== ENCOUNTER → 2016-12-01 | Outpatient (CLI) | payer MEDICARE ==
--- NOTE | 2016-12-05 09:50 | RSPPFT ---
DATE OF PROCEDURE: 12/01/16 These pulmonary functions were repeated shortly after another set had been done because of a dramatic change of questionable significance. COMMENTS: VOLUMES DYNAMIC: FVC and FEV1 moderately reduced. STATIC: TLC, RV and FRC all mildly decreased. FLOWS: FEV1% moderately reduced; FEF 25-75 severely reduced. DIFFUSION: Severely reduced. FLOW VOLUME LOOP: Pattern of variable intrathoracic airways obstruction. IMPRESSION: Moderately severe obstructive ventilatory defect with improvement post-bronchodilator. There is also a co-existent restrictive defect and a severe reduction in diffusion.
== END ==
LOC: HRSP 12:18
PROVIDERS: ATTEND Internal Medicine
DX: R06.02 Shortness of breath (principal)
CPT/HCPCS: 94060; 94620; 94726; 94729

== ENCOUNTER → 2017-04-02 | Outpatient (CLI) | payer MEDICARE ==
[2017-04-02 15:21] LABS: AUTOMATED NEUTROPHIL # 2.3 TH/MM3 (1.8-7.7); BASOPHIL % 0.8 % (0.0-2.0); EOSINOPHIL # 0.2 TH/MM3 (0-0.4); EOSINOPHIL % 3.4 % (0.0-4.0); LYMPH % 31.9 % (9.0-44.0); LYMPHOCYTE # 1.4 TH/MM3 (1.0-4.8); MEAN CELL VOLUME 98.8 FL (80.0-100.0); MEAN CORPUSCULAR HEMOGLOBIN 33.9 PG (27.0-34.0); MEAN CORPUSCULAR HGB CONC 34.4 % (32.0-36.0); MONO % 11.3 % (0.0-8.0); NEUT % 52.6 % (16.0-70.0); PLATELET COUNT 91 TH/MM3 (150-450); RED BLOOD COUNT 4.66 MIL/MM3 (4.50-5.90); RED CELL DISTRIBUTION WIDTH 12.2 % (11.6-17.2); WHITE BLOOD COUNT 4.4 TH/MM3 (4.0-11.0)
[2017-04-02 15:30] LABS: HEMO FLAGS AUTO DIFF
[2017-04-02 15:39] LABS: TRANSFERRIN IRON PROFILE 286 MG/DL (200-360)
[2017-04-02 15:41] LABS: FERRITIN 33 NG/ML (26-388)
[2017-04-02 16:04] LABS: PLATELET ESTIMATE SMEAR LOW (NORMAL); PLATELET MORPHOLOGY NORMAL (NORMAL); SCAN/DIFF FINAL DIFF MANUAL
== END ==
LOC: CLAB 14:06
PROVIDERS: ATTEND Internal Medicine Hematology & Oncology
DX: D55.1 Anemia due to other disorders of glutathione metabolism (principal); D50.9 Iron deficiency anemia, unspecified
CPT/HCPCS: 36415; 82728; 83540; 83550; 85007; 85027

== ENCOUNTER → 2017-04-06 | Outpatient (CLI) | payer MEDICARE ==
[2017-04-06 10:20] LABS: AUTOMATED NEUTROPHIL # 2.2 TH/MM3 (1.8-7.7); BASOPHIL % 0.7 % (0.0-2.0); EOSINOPHIL # 0.3 TH/MM3 (0-0.4); EOSINOPHIL % 5.6 % (0.0-4.0); HEMATOCRIT 47.9 % (39.0-51.0); LYMPH % 39.1 % (9.0-44.0); LYMPHOCYTE # 1.9 TH/MM3 (1.0-4.8); MEAN CELL VOLUME 98.9 FL (80.0-100.0); MEAN CORPUSCULAR HEMOGLOBIN 33.8 PG (27.0-34.0); MEAN CORPUSCULAR HGB CONC 34.2 % (32.0-36.0); MONO % 10.1 % (0.0-8.0); NEUT % 44.5 % (16.0-70.0); PLATELET COUNT 96 TH/MM3 (150-450); RED BLOOD COUNT 4.85 MIL/MM3 (4.50-5.90); RED CELL DISTRIBUTION WIDTH 12.5 % (11.6-17.2); WHITE BLOOD COUNT 4.9 TH/MM3 (4.0-11.0)
[2017-04-06 10:28] LABS: HEMO FLAGS AUTO DIFF
[2017-04-06 10:38] LABS: ANION GAP 9 MEQ/L (5-15); AST (GOT) 35 U/L (15-37); BICARBONATE 23.3 MEQ/L (21.0-32.0); BLOOD UREA NITROGEN 15 MG/DL (7-18); CHLORIDE 105 MEQ/L (98-107); GLOMERULAR FILTRATION RATE 86 ML/MIN (>89); GLUCOSE,FASTING 126 MG/DL (74-99); POTASSIUM 3.7 MEQ/L (3.5-5.1); SODIUM (NA) 137 MEQ/L (136-145)
[2017-04-06 10:39] LABS: ALT (GPT) 34 U/L (12-78)
[2017-04-06 10:42] LABS: ALKALINE PHOSPHATASE 84 U/L (45-117); HDL CHOLESTEROL 41.9 MG/DL (40.0-60.0); LDL CHOLESTEROL 70 MG/DL (0-99); TOTAL BILIRUBIN ADULT 1.3 MG/DL (0.2-1.0)
[2017-04-06 11:39] LABS: OVALOCYTES 2+ (NORMAL); PLATELET ESTIMATE SMEAR LOW (NORMAL); PLATELET MORPHOLOGY NORMAL (NORMAL); SCAN/DIFF AUTO DIFF CONFIRMED
[2017-04-06 11:46] LABS: MICRO ALBUMIN RANDOM URINE RAW 68.1 MG/L (0.0-30.0)
[2017-04-06 16:35] LABS: HEMOGLOBIN A1a 1.2 %; HEMOGLOBIN A1b 0.7 %; HEMOGLOBIN Ao 84.4 %; HEMOGLOBIN F 1.8 %; HEMOGLOBIN LA1C 2.2 %; HEMOGLOBIN P3 3.7 %
== END ==
LOC: CLAB 09:24
PROVIDERS: ATTEND Internal Medicine Nephrology
DX: E78.5 Hyperlipidemia, unspecified (principal); E55.9 Vitamin D deficiency, unspecified; N18.3 Chronic kidney disease, stage 3 (moderate); E11.22 Type 2 diabetes mellitus with diabetic chronic kidney disease; K76.0 Fatty (change of) liver, not elsewhere classified
CPT/HCPCS: 36415; 80053; 80061; 82043; 83036; 85025

== ENCOUNTER → 2017-06-26 | Outpatient (CLI) | payer MEDICARE ==
[~2017-06-26] MED LIST changes: -OMEP20TA PO; +OMEP20TA93 PO
[2017-06-26 11:22] LABS: AUTOMATED NEUTROPHIL # 2.3 TH/MM3 (1.8-7.7); BASOPHIL % 0.9 % (0.0-2.0); EOSINOPHIL # 0.2 TH/MM3 (0-0.4); EOSINOPHIL % 4.8 % (0.0-4.0); HEMATOCRIT 46.9 % (39.0-51.0); HEMOGLOBIN 16.3 GM/DL (13.0-17.0); LYMPH % 30.8 % (9.0-44.0); LYMPHOCYTE # 1.3 TH/MM3 (1.0-4.8); MEAN CELL VOLUME 99.4 FL (80.0-100.0); MEAN CORPUSCULAR HEMOGLOBIN 34.6 PG (27.0-34.0); MEAN CORPUSCULAR HGB CONC 34.9 % (32.0-36.0); MEAN PLATELET VOLUME 8.2 FL (7.0-11.0); MONO % 10.4 % (0.0-8.0); MONOCYTE # 0.4 TH/MM3 (0-0.9); NEUT % 53.1 % (16.0-70.0); PLATELET COUNT 88 TH/MM3 (150-450); RED BLOOD COUNT 4.72 MIL/MM3 (4.50-5.90); RED CELL DISTRIBUTION WIDTH 14.8 % (11.6-17.2); WHITE BLOOD COUNT 4.2 TH/MM3 (4.0-11.0)
[2017-06-26 11:45] LABS: AST (GOT) 41 U/L (15-37); BICARBONATE 22.9 MEQ/L (21.0-32.0); BLOOD UREA NITROGEN 21 MG/DL (7-18); CHLORIDE 108 MEQ/L (98-107); DIRECT BILIRUBIN ADULT 0.3 MG/DL (0.0-0.2); GLOMERULAR FILTRATION RATE 74 ML/MIN (>89); GLUCOSE,FASTING 144 MG/DL (74-99); SODIUM (NA) 140 MEQ/L (136-145)
[2017-06-26 11:46] LABS: ALT (GPT) 39 U/L (12-78); CHOLESTEROL 143 MG/DL (120-200); TRIGLYCERIDES 277 MG/DL (42-150)
[2017-06-26 11:47] LABS: % SATURATION IRON PROFILE 22.8 % (20-50); IRON (FE) 77 MCG/DL (65-175); TOTAL IRON BINDING CAPACITY 337 MCG/DL (250-450)
[2017-06-26 12:11] LABS: ALKALINE PHOSPHATASE 109 U/L (45-117); FOLATE 14.5 NG/ML (3.1-17.5); HDL CHOLESTEROL 30.4 MG/DL (40.0-60.0); LDL CHOLESTEROL 57 MG/DL (0-99); TOTAL BILIRUBIN ADULT 1.3 MG/DL (0.2-1.0); TOTAL PROTEIN 7.5 GM/DL (6.4-8.2)
[2017-06-26 15:38] LABS: HEMOGLOBIN A1C 5.5 % (4.3-6.0)
[2017-06-27 23:52] LABS: C-PEPTIDE 3.39 ng/mL (0.80-3.85)
[2017-06-30 16:30] LABS: FREE TESTOSTERONE 7.2 ng/dL (3.47-13.0)
== END ==
LOC: CLAB 10:31
PROVIDERS: ATTEND Internal Medicine Endocrinology, Diabetes & Metabolism
DX: E29.1 Testicular hypofunction (principal); D50.0 Iron deficiency anemia secondary to blood loss (chronic); N18.1 Chronic kidney disease, stage 1; E11.22 Type 2 diabetes mellitus with diabetic chronic kidney disease; E11.65 Type 2 diabetes mellitus with hyperglycemia; D63.1 Anemia in chronic kidney disease; Z13.228 Encounter for screening for other metabolic disorders
CPT/HCPCS: 36415; 80048; 80061; 80076; 82306; 82308; 82607; 82746; 83036; 83525; 83540; 83550; 84153; 84206; 84270; 84403; 84410; 84681; 85025

== ENCOUNTER → 2017-10-07 | Outpatient (CLI) | payer MEDICARE ==
[2017-10-07 16:22] LABS: CREATININE 1.03 MG/DL (0.60-1.30)
== END ==
LOC: CLAB 15:34
PROVIDERS: ATTEND Specialist
DX: N18.3 Chronic kidney disease, stage 3 (moderate) (principal)
CPT/HCPCS: 36415; 82565; 84520